=== PATIENT | male | born 1955 | race Caucasian/White ===

== ENCOUNTER 2023-03-20 19:02 | Observation (INO) | payer OTHER ==
[2023-03-20 19:21] VITALS: BMI 25.0
[2023-03-20] MEDS ORDERED: DEXAMETHASONE 4 MG TABLET (FP) ONE (19:47)
[2023-03-20] MEDS: DEXAMETHASONE 4 MG TABLET (FP) PO ONE (19:51)
[2023-03-20] MEDS: ALBUTEROL SO4 2.5/IPRATROPIUM 0.5 INH SOL 3 ML VIAL.NEB. NEB ONE ×3 (20:05→20:35)
[2023-03-20] MEDS ORDERED: ASPIRIN 81 MG CHEWABLE TABLETS ONE (20:24)
[2023-03-20] MEDS: ASPIRIN 81 MG CHEWABLE TABLETS PO ONE (20:28)
[2023-03-20] MEDS ORDERED: TERBUTALINE SULFATE 1 MG/1 ML VIAL SQ ONE (20:46)
[2023-03-20] MEDS ORDERED: MAGNESIUM SULFATE IN WATER 2 GM/50 ML IVPB IVPB ONE (20:46)
[2023-03-20] MEDS: MAGNESIUM SULF 50% (8.12 MEQ/2 ML-1 GM VIAL) IVPB ONE (20:50)
[2023-03-20 20:56] LABS: HEMATOCRIT 42.6 % (35.4-49); HEMOGLOBIN 14.6 G/dL (11.7-16.9); MCH 31.2 pg (25.7-33.7); MCHC 34.3 g/dl (32.0-35.9); MEAN CELL VOLUME 91.1 fl (80-96); MEAN PLT VOLUME 8.3 fl (7.5-11.1); PLATELET COUNT 322.1 10^3/uL (134-434); RBC 4.68 10^6/uL (4.00-5.60); WHITE BLOOD COUNT 12.3 10^3/uL (4.0-10.8)
[2023-03-20] MEDS: TERBUTALINE SULFATE 1 MG/1 ML VIAL SQ ONE (20:57)
[2023-03-20] MEDS: MONTELUKAST NA 10 MG TABLET PO ONE (21:09)
[2023-03-20 21:10] LABS: INR 1.11 (0.83-1.09); PROTHROMBIN TIME (PATIENT) 12.9 SEC (9.7-13.0)
[2023-03-20 21:17] LABS: PLATELET ESTIMATE ADEQUATE
[2023-03-20 21:18] LABS: ALBUMIN 4.5 g/dl (3.4-5.0); BILIRUBIN,TOTAL 0.3 mg/dl (0.2-1); CREATININE 1.1 mg/dl (0.6-1.3); POTASSIUM 4.4 mmol/L (3.5-5.1); TOT PROT 6.8 g/dl (6.4-8.2)
[2023-03-20] MEDS ORDERED: AZITHROMYCIN 500 MG VIAL IVPB ONE (21:23)
[2023-03-20] MEDS ORDERED: cefTRIAXone SODIUM 1 GM VIAL ONE (21:23)
[2023-03-20] MEDS: CEFTRIAXONE 1 GM in DEXTROSE 5%-WATER - 50 ML IVPB ONE (21:26)
[2023-03-20] MEDS: AZITHROMYCIN IVPB 500 MG in DEXTROSE 5%-WATER - 250 ML IVPB ONE (22:11)
[2023-03-20] MEDS ORDERED: ACETAMINOPHEN 325 MG TABLET (FP) PO PRN (22:29)
[2023-03-20] MEDS ORDERED: ALBUTEROL SO4 0.083% IH SOL 2.5 MG/3 ML VIAL.NEB. NEB PRN (22:29)
[2023-03-20] MEDS ORDERED: DOCUSATE SODIUM 100 MG CAPSULE (FP) PO PRN (22:29)
[2023-03-21] MEDS: CARVEDILOL 12.5 MG TABLET (FP) PO SCH (01:35)
[2023-03-21] MEDS: INSULIN ASPART SLIDING SCALE (NOVOLOG) 1 VIAL SQ SCH (07:07)
[2023-03-21] MEDS: TAMSULOSIN HCL 0.4 MG CAP PO SCH (08:34)
[2023-03-21] MEDS: ALBUTEROL SO4 0.083% IH SOL 2.5 MG/3 ML VIAL.NEB. NEB SCH (08:35)
[2023-03-21 08:49] LABS: CALCIUM 9.3 mg/dl (8.5-10.1); POTASSIUM 4.5 mmol/L (3.5-5.1)
[2023-03-21] MEDS: CEFTRIAXONE 1 GM in DEXTROSE 5%-WATER - 50 ML IVPB SCH (09:44)
[2023-03-21] MEDS: AZITHROMYCIN IVPB 500 MG/250 ML BAG IVPB SCH (09:45)
[2023-03-21] MEDS: LISINOPRIL 10 MG TABLET PO SCH (09:46)
[2023-03-21 09:48] VITALS: BP 167/69; RESP 19; TEMP 98.5
[2023-03-21 10:30] LABS: HEMOGLOBIN 13.5 GM/dL (11.7-16.9); MCH 30.3 pg (25.7-33.7); MCHC 33.7 g/dl (32.0-35.9); MEAN CELL VOLUME 89.9 fl (80-96); MEAN PLT VOLUME 8.3 fl (7.5-11.1); PLATELET COUNT 330 10^3/uL (134-434); RBC 4.45 M/mm3 (4.00-5.60); RDW 12.9 % (11.9-15.9); WHITE BLOOD COUNT 8.7 K/mm3 (4.0-10.0)
[2023-03-21 11:00] VITALS: PULSE 117
[2023-03-21 11:58] LABS: ANISOCYTOSIS 0; HELMET CELLS 0; HOWELL-JOLLY BODIES 0; MACROCYTOSIS 0; OVALOCYTE 0; ROULEAU 0; SICKELED CELLS 0; TARGET CELLS 0; TEAR DROP CELLS 0; TOXIC GRANULATION 0
[2023-03-21] MEDS ORDERED: MONTELUKAST NA 10 MG TABLET PO SCH (22:00)
== END 2023-03-21 13:50 | disposition home or self-care (01) ==
LOC: SUPCPDRO 19:02 → FER 19:02 → FM/S 03-21 00:13
PROVIDERS: ADMIT Internal Medicine; ATTEND Internal Medicine
PROC: 3E0F7GC Introduction of Other Therapeutic Substance into Respiratory Tract, Via Natural or Artificial Opening (ICD-10-PCS; principal; 2023-03-21)
PROC: 3E03329 Introduction of Other Anti-infective into Peripheral Vein, Percutaneous Approach (ICD-10-PCS; 2023-03-21)
PROC: 3E013VG Introduction of Insulin into Subcutaneous Tissue, Percutaneous Approach (ICD-10-PCS; 2023-03-21)
PROC: 3E033GC Introduction of Other Therapeutic Substance into Peripheral Vein, Percutaneous Approach (ICD-10-PCS; 2023-03-21)
PROC: 3E023GC Introduction of Other Therapeutic Substance into Muscle, Percutaneous Approach (ICD-10-PCS; 2023-03-21)
DX: J18.9 Pneumonia, unspecified organism (principal); J45.901 Unspecified asthma with (acute) exacerbation; I10 Essential (primary) hypertension; E11.9 Type 2 diabetes mellitus without complications; E78.5 Hyperlipidemia, unspecified
CPT/HCPCS: 0241U-QW; 36415; 71046-TC-FY; 80048; 80053; 82962; 84484; 85025; 85610; 93005; 94640; 96365; 96366; 96367; 96372; 96375; 99285-25; G0378

== ENCOUNTER 2023-10-29 08:07 | Day surgery (SDC) | payer OTHER, MEDICARE ==
[2023-10-21 15:56] VITALS: BMI 22.4
[2023-10-29] MEDS: CYCLOPENTOLATE 2% OPHTH SOLN 2 ML BOTTLE ONE (08:30)
[2023-10-29] MEDS: CIPROFLOXACIN 0.3% EYE DROPS 5 ML BOTTLE ONE (08:30)
[2023-10-29] MEDS: TROPICAMIDE 1% OPHTH SOLN 15 ML BOTTLE ONE (08:30)
[2023-10-29] MEDS: PHENYLEPHRINE 2.5% OPTHALMIC DROP 2ML BOTTLE ONE (08:30)
[2023-10-29] MEDS ORDERED: EPINEPHrine/PF 1 MG/1 ML (1:1,000) AMPULE ONE (08:45)
[2023-10-29] MEDS ORDERED: TETRACAINE 0.5% OPHTH SOLN 2 ML BOTTLE ONE (08:45)
[2023-10-29] MEDS ORDERED: BSS (NA/CA/MG/K) BALANCED SALT SOLUTION OPHTH SOLN 15 ML BOTTLE ONE (08:45)
[2023-10-29] MEDS ORDERED: NEO/POLYMYX B SULF/DEXAMETH OPHTHALMIC 5ML BOTTLE ONE (08:45)
[2023-10-29] MEDS ORDERED: LIDOCAINE 1% P/F 10 MG/ML VIAL ONE (08:45)
[2023-10-29] MEDS ORDERED: CARBACHOL 0.01% INTRA-OCULAR 1.5 ML VIAL ONE (08:45)
[2023-10-29] MEDS ORDERED: MIDAZOLAM HCL 2 MG/2 ML SINGLE DOSE VIAL ONE (10:45)
[2023-10-29] MEDS ORDERED: METOPROLOL TARTRATE 5 MG/5 ML VIAL ONE (11:09)
[2023-10-29 11:32] VITALS: RESP 19; TEMP 98.4
[2023-10-29 11:51] VITALS: BP 150/70; PULSE 89
== END 2023-10-29 12:01 | disposition home or self-care (01) ==
LOC: FASU 08:07
PROVIDERS: ATTEND Ophthalmology
PROC: 08RJ3JZ Replacement of Right Lens with Synthetic Substitute, Percutaneous Approach (ICD-10-PCS; principal; 2023-10-29 11:07)
DX: H26.8 Other specified cataract (principal)
CPT/HCPCS: 66984; V2632; 82962

== ENCOUNTER → 2024-03-12 | Day surgery (SDC) | payer MEDICARE, OTHER | END | disposition home or self-care (01) | LOC: JRADIR 10:06 | PROVIDERS: ATTEND Internal Medicine Endocrinology, Diabetes & Metabolism | PROC: 0G9G3ZX Drainage of Left Thyroid Gland Lobe, Percutaneous Approach, Diagnostic (ICD-10-PCS; principal; 2024-03-12) | DX: E04.1 Nontoxic single thyroid nodule (principal) | CPT/HCPCS: 10005; 76942; 88173; 88305-TC ==